=== PATIENT | male | born 1985 | race Two or more races ===

== ENCOUNTER 2021-01-26 16:08 | Emergency (ER) | payer SELFPAY ==
[~2021-01-26] VITALS: Ht 188 cm; Wt 90.7 kg
[2021-01-26 16:29] VITALS: BP 123/84
[2021-01-26] MEDS ORDERED: TETANUS-DIPTH-ACEL PERTUSSIS 0.5ML SYR Tdap IM ONE (17:00)
== END 2021-01-26 17:50 | disposition home or self-care (01) ==
LOC: ER 16:10
DX: S91.312A Laceration without foreign body, left foot, initial encounter (principal); W26.8XXA Contact with other sharp object(s), not elsewhere classified, initial encounter; Y93.89 Activity, other specified; Y92.89 Other specified places as the place of occurrence of the external cause; Y99.8 Other external cause status
CPT/HCPCS: 12002; 90471; 90715

== ENCOUNTER 2022-01-09 18:50 | Emergency (ER) | payer MEDICAID | END 2022-01-09 20:00 | disposition left against medical advice (07) | LOC: ER 18:50 | DX: M79.604 Pain in right leg (principal); Z53.21 Procedure and treatment not carried out due to patient leaving prior to being seen by health care provider ==